=== PATIENT | female | born 1990 ===

== ENCOUNTER 2022-08-19 21:42 | Inpatient (IN) | payer SELFPAY ==
[2022-08-20] MEDS ORDERED: Methylergonovine 0.2 MG/1 ML Amp ONE (00:15)
[2022-08-20] MEDS ORDERED: ceFAZolin 1 GM Vial ONE (00:15)
[2022-08-20] MEDS ORDERED: Enoxaparin 40 MG/0.4 ML Syringe ONE (00:15)
[2022-08-20] MEDS ORDERED: Acetaminophen/oxyCODONE 325-5 MG Tab ONE ×2 (00:15)
[2022-08-20] MEDS ORDERED: Ketorolac 30 MG/ML SDV ONE ×3 (00:15)
[2022-08-20] MEDS ORDERED: Oxytocin/Lactated Ringers 10 UNIT/1,000 ML BAG IV ONE (03:45)
[2022-08-20] MEDS ORDERED: Dextrose 5%-Lactated Ringers 1,000 ML IV ONE (10:30)
[2022-08-21] MEDS ORDERED: Acetaminophen/oxyCODONE 325-5 MG Tab ONE (09:00)
[2022-08-21] MEDS ORDERED: Ibuprofen 600 MG Tab ONE ×2 (09:00)
== END 2022-08-21 11:00 | disposition home or self-care (01) | DRG 787 ==
LOC: JD.OBCHECK 21:42 → JD.ZCENSUS 21:43 → OBSVTOIN 23:30
PROVIDERS: ADMIT Obstetrics & Gynecology; ATTEND Obstetrics & Gynecology
PROC: 10D00Z1 Extraction of Products of Conception, Low, Open Approach (ICD-10-PCS; principal; 2022-08-20)
DX: O34.211 Maternal care for low transverse scar from previous cesarean delivery (principal); D68.61 Antiphospholipid syndrome; O99.12 Other diseases of the blood and blood-forming organs and certain disorders involving the immune mechanism complicating childbirth; Z37.0 Single live birth; Z3A.39 39 weeks gestation of pregnancy; O99.334 Smoking (tobacco) complicating childbirth; F17.210 Nicotine dependence, cigarettes, uncomplicated; O99.344 Other mental disorders complicating childbirth; F41.9 Anxiety disorder, unspecified; O99.824 Streptococcus B carrier state complicating childbirth; Z88.5 Allergy status to narcotic agent
CPT/HCPCS: 01961; 36415; 59025; 80306; 84112; 85025; 86592; 86900; 86901; A9270-GY; J0690; J1650; J1885; J2210; J2590; J7121